=== PATIENT | female | born 1980 | race African-American/Black ===

== ENCOUNTER 2016-11-14 03:32 | Emergency (ER) | payer OTHER ==
[2016-11-14 03:42] VITALS: RESP 18
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
[2016-11-14] MEDS ORDERED: MORPHINE SULFATE 2 MG/ML SYRINGE IVP STA (04:26)
[2016-11-14] MEDS ORDERED: ASPIRIN 81 MG CHEW PO STA (04:26)
[2016-11-14 04:59] LABS: Basophils % (A) 0 %; CH 33.1; CHCM 33.3; Eosinophils # (A) 0.4 k/uL (0-0.7); Eosinophils % (A) 5 %; HCT 43.2 % (34.0-46.0); HDW 2.41; HGB 14.1 gm/dL (11.4-16.0); Luc # (Auto) 0.12; Luc % (Auto) 2; Lymphocytes # (A) 2.1 k/uL (1.0-4.8); Lymphocytes % (A) 28 %; MCH 32.5 pg (25.0-35.0); MCHC 32.7 g/dL (31.0-37.0); MCV 99.5 fL (80.0-100.0); Mean Platelet Volume 9.1; Monocytes # (A) 0.3 k/uL (0-1.0); Monocytes % (A) 4 %; Neutrophils # (A) 4.6 k/uL (1.3-7.7); Neutrophils % (A) 61 %; RBC 4.34 m/uL (3.80-5.40); RDW 14.9 % (11.5-15.5); WBC 7.4 k/uL (3.8-10.6)
[2016-11-14 05:12] LABS: ALT 22 U/L (9-52); AST 23 U/L (14-36); Alkaline Phosphatase 65 U/L (38-126); Anion Gap 11 mmol/L; Blood Urea Nitrogen 19 mg/dL (7-17); Calcium 9.9 mg/dL (8.4-10.2); Carbon Dioxide 21 mmol/L (22-30); Chloride 110 mmol/L (98-107); Glucose 86 mg/dL (74-99); Magnesium 1.7 mg/dL (1.6-2.3); Non-African American GFR(MDRD) >60 (>60 ml/min/1.73 sqM); Potassium 4.8 mmol/L (3.5-5.1); Sodium 142 mmol/L (137-145); Total Bilirubin 0.7 mg/dL (0.2-1.3); Total Protein 7.2 g/dL (6.3-8.2)
--- NOTE | 2016-11-14 05:17 | XR ---
EXAM: XR Chest, 1 View CLINICAL HISTORY: Reason: chest pain TECHNIQUE: Frontal view of the chest. COMPARISON: 03/16/2015 FINDINGS: Lungs: Unremarkable. No consolidation. Pleural space: Unremarkable. No pneumothorax. Heart: Unremarkable. No cardiomegaly. Mediastinum: Unremarkable. Bones/joints: Unremarkable. IMPRESSION: Normal chest x-ray. No significant interval changes seen.
[2016-11-14 06:27] LABS: Creatine Kinase 75 U/L (30-135)
[2016-11-14 06:33] LABS: Prothrombin Time 9.9 sec (9.0-12.0)
[2016-11-14 06:40] LABS: Creatine Kinase MB 0.4 ng/mL (0.0-2.4); Troponin I <0.012 ng/mL (0.000-0.034)
[2016-11-14] MEDS ORDERED: MORPHINE SULFATE 4 MG/ML SYRINGE IV STA (07:05)
[2016-11-14] MEDS ORDERED: KETOROLAC 30 MG/ML 1 ML VIAL IVP STA (08:29)
[2016-11-14 08:38] VITALS: BP 119/58; PULSE 54; TEMP 97.9
== END 2016-11-14 08:48 | disposition home or self-care (01) ==
LOC: EC 03:32
DX: M94.0 Chondrocostal junction syndrome [Tietze] (principal); E66.9 Obesity, unspecified; F17.200 Nicotine dependence, unspecified, uncomplicated; Z68.43 Body mass index [BMI] 50.0-59.9, adult
CPT/HCPCS: 36415; 93005; 85379; 80053; 82550; 82553; 83735; 84484; 85025; 85610; 85730; 71010; 99285; 96374; 96375; 96376; J2270 ×2; J1885

== ENCOUNTER → 2016-11-25 | Outpatient (CLI) | payer OTHER ==
--- NOTE | 2016-11-25 12:36 | P.STRESS ---
- Stress Test Note Stress Test Results/Findings: Exam Performed: stress echo exercise Exam Date: 11/25/16 Reason for Exam: CP Height: 6 ft 2 in Weight: 149.685 kg Protocol: Stress Echo Stage: 3 Duration of Exercise: 7:00 Resting Heart Rate: 58 Resting Blood Pressure: 112/49 Maximum Achieved Heart Rate: 156 Maximum Achieved Blood Pressure: 218/95 85% PMHR: 156 100% PMHR: 184 METS: 8.3 Technologist Comment: Stress Test Results/Findings: This is a 36-year-old female being evaluated for symptoms of chest pain. Patient has history of hypertension. Baseline EKG showed sinus rhythm at all. CO interval and QRS duration. Blood pressure test is 112/49, pulse rate 58. Patient walked on the Kirk protocol for 7 minutes achieving a maximal rate of 156 with blood pressure 196 4/61. EKGs taken during and after the x-ray did not reveal any changes to good-sized ischemia. Echo data. Baseline echo images show normal wall motion and thickening. X- rays echo images showed augmentation of wall motion and thickening in all segments. Final impression: #1. Negative stress test #2. Good x-rays capacity #3. Negative stress echo.
--- NOTE | 2016-11-29 10:05 | ECHOS ---
Stress Test Results/Findings: Exam Performed: stress echo exercise Exam Date: 11/25/16 Reason for Exam: CP Height: 6 ft 2 in Weight: 149.685 kg Protocol: Stress Echo Stage: 3 Duration of Exercise: 7:00 Resting Heart Rate: 58 Resting Blood Pressure: 112/49 Maximum Achieved Heart Rate: 156 Maximum Achieved Blood Pressure: 218/95 85% PMHR: 156 100% PMHR: 184 METS: 8.3 Technologist Comment: Stress Test Results/Findings: This is a 36-year-old female being evaluated for symptoms of chest pain. Patient has history of hypertension. Baseline EKG showed sinus rhythm at all. MA interval and QRS duration. Blood pressure test is 112/49, pulse rate 58. Patient walked on the Kirk protocol for 7 minutes achieving a maximal rate of 156 with blood pressure 196 4/61. EKGs taken during and after the x-ray did not reveal any changes to good-sized ischemia. Echo data. Baseline echo images show normal wall motion and thickening. X- rays echo images showed augmentation of wall motion and thickening in all segments. Final impression: #1. Negative stress test #2. Good exercise capacity #3. Negative stress echo. POLLO
== END | disposition home or self-care (01) ==
LOC: RADNMMAIN 09:13
PROVIDERS: ATTEND Family Medicine
DX: R07.9 Chest pain, unspecified (principal)
CPT/HCPCS: 93017; 93350

== ENCOUNTER 2016-11-27 05:36 | Emergency (ER) | payer OTHER ==
[2016-11-27 05:43] VITALS: BP 156/89; PULSE 91; RESP 18; TEMP 97.2
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
--- NOTE | 2016-11-27 06:56 | CT ---
EXAM: CT Head Without Intravenous Contrast CLINICAL HISTORY: Reason: Trauma TECHNIQUE: Axial computed tomography images of the head/brain without intravenous contrast. DLP is 1012.90 mGy-cm. This CT exam was performed using one or more of the following dose reduction techniques: automated exposure control, adjustment of the mA and/or kV according to patient size, and/or use of iterative reconstruction technique. COMPARISON: No relevant prior studies available. FINDINGS: Brain: Unremarkable. No hemorrhage. No significant white matter disease. No edema. Ventricles: Unremarkable. No ventriculomegaly. Bones/joints: Unremarkable. No acute fracture. Soft tissues: Unremarkable. Sinuses: Unremarkable as visualized. No acute sinusitis. Mastoid air cells: Unremarkable as visualized. No mastoid effusion. IMPRESSION: Normal head/brain CT. EXAM: CT Cervical Spine Without Intravenous Contrast CLINICAL HISTORY: Reason: Trauma TECHNIQUE: Axial computed tomography images of the cervical spine without intravenous contrast. DLP is 842.10 mGy-cm. This CT exam was performed using one or more of the following dose reduction techniques: automated exposure control, adjustment of the mA and/or kV according to patient size, and/or use of iterative reconstruction technique. COMPARISON: No relevant prior studies available. FINDINGS: Vertebrae: Unremarkable. No acute fracture. Discs/spinal canal/neural foramina: No acute findings. No spinal canal stenosis. Soft tissues: Unremarkable. Lung apices: Unremarkable as visualized. IMPRESSION: Normal cervical spine CT.
== END 2016-11-27 07:38 | disposition home or self-care (01) ==
LOC: EC 05:36
DX: S09.90XA Unspecified injury of head, initial encounter (principal); S00.511A Abrasion of lip, initial encounter; R40.2140 Coma scale, eyes open, spontaneous, unspecified time; R40.2360 Coma scale, best motor response, obeys commands, unspecified time; R40.2250 Coma scale, best verbal response, oriented, unspecified time; I10 Essential (primary) hypertension; F17.200 Nicotine dependence, unspecified, uncomplicated; Z79.899 Other long term (current) drug therapy; Y04.2XXA Assault by strike against or bumped into by another person, initial encounter
CPT/HCPCS: 70450; 72125; 99284

== ENCOUNTER 2017-04-24 19:26 | Emergency (ER) | payer OTHER ==
[2017-04-24] MEDS ORDERED: HYDROmorphone 0.5 MG/0.5 ML SYRINGE IVP STA (19:45)
[2017-04-24] MEDS ORDERED: SODIUM CHLORIDE 0.9% 500 ML IV STA (19:45)
[2017-04-24] MEDS ORDERED: KETOROLAC 30 MG/ML 1 ML VIAL IVP STA (19:45)
[2017-04-24 21:10] LABS: Basophils % (A) 0 %; Eosinophils # (A) 0.3 k/uL (0-0.7); Eosinophils % (A) 4 %; HCT 33.2 % (34.0-46.0); HGB 10.8 gm/dL (11.4-16.0); Lymphocytes # (A) 2.2 k/uL (1.0-4.8); Lymphocytes % (A) 31 %; MCH 31.7 pg (25.0-35.0); MCHC 32.4 g/dL (31.0-37.0); MCV 97.8 fL (80.0-100.0); Monocytes # (A) 0.3 k/uL (0-1.0); Monocytes % (A) 4 %; Neutrophils # (A) 4.3 k/uL (1.3-7.7); Neutrophils % (A) 60 %; Platelet Count 300 k/uL (150-450); RDW 14.2 % (11.5-15.5); WBC 7.2 k/uL (3.8-10.6)
[2017-04-24 21:22] LABS: ALT 27 U/L (9-52); AST 22 U/L (14-36); Albumin 3.8 g/dL (3.5-5.0); Alkaline Phosphatase 56 U/L (38-126); Amylase 52 U/L (30-110); Anion Gap 8 mmol/L; Blood Urea Nitrogen 20 mg/dL (7-17); Calcium 9.6 mg/dL (8.4-10.2); Carbon Dioxide 24 mmol/L (22-30); Chloride 109 mmol/L (98-107); Glucose 88 mg/dL (74-99); Lipase 203 U/L (23-300); Sodium 141 mmol/L (137-145); Total Bilirubin 0.3 mg/dL (0.2-1.3); Total Protein 6.6 g/dL (6.3-8.2)
[2017-04-24 21:46] LABS: Amorphous Sediment,Urine Rare /hpf; Appearance,Urine Cloudy (Clear); Bacteria,Urine Rare /hpf; Bilirubin,Urine Negative (Negative); Blood,Urine Small (Negative); Color,Urine Yellow; Glucose,Urine (UA) Negative (Negative); Hyaline Casts,Urine 1 /lpf (0-2); Ketones,Urine Trace (Negative); Leukocyte Esterase,Urine Negative (Negative); Mucus,Urine Few /hpf; Nitrite,Urine Negative (Negative); PH, Urine 5.5 (5.0-8.0); Protein,Urine Negative (Negative); RBC,Urine 2 /hpf (0-5); Specific Gravity,Urine 1.021 (1.001-1.035); Squamous Epithelial Cell,Urine 16 /hpf (0-4); Urobilinogen,Urine <2.0 mg/dL (<2.0); WBC,Urine 20 /hpf (0-5)
--- NOTE | 2017-04-24 22:05 | XR ---
Exam: KUB TECHNIQUE: 2 views of the abdomen were obtained. FINDINGS: No definite free intraperitoneal air is identified. Nonspecific nonobstructive bowel gas pattern is noted. There is no evidence of impaction or obstructi on. IMPRESSION: Overall nonobstructive bowel gas pattern.
[2017-04-24] MEDS ORDERED: HYDROmorphone 2 MG/ML 1 ML SYRINGE IVP STA (22:38)
--- NOTE | 2017-04-24 23:08 | CT ---
EXAMINATION TYPE: CT abdomen pelvis wo con DATE OF EXAM: 04/24/2017 COMPARISON: February 04, 2016 HISTORY: Lower back pain. CT DLP: 2583.3 mGycm Automated exposure control for dose reduction was used. TECHNIQUE: Helical acquisition of images was performed from the lung bases through the pelvis. FINDINGS: Lung bases are clear. There is no pleural effusion. Liver spleen pancreas gallbladder appear normal. Bile ducts are not dilated. There is no adrenal mass. Kidneys have normal size and contour. There is no hydronephrosis. Ureters are not dilated. There is small umbilical hernia that contains fat. There is no evidence of intestinal obstruction. I see no intestinal wall thickening. Uterus is anteverted. There is a 4 cm cyst on the left ovary. Bladder distends smoothly. I see no bony destructive process. There is no ascites. Appendix is not seen. IMPRESSION: LEFT OVARIAN CYST IS UNCHANGED COMPARED TO OLD EXAM. THERE IS CLEARING OF THE MILD LEFT-SIDED HYDRONE PHROSIS COMPARED TO OLD EXAM. NO SIGN OF ACUTE ABDOMEN AND PELVIS.
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
[2017-04-24 23:30] VITALS: BP 122/58; PULSE 76; RESP 18; TEMP 98.7
== END 2017-04-24 23:29 | disposition home or self-care (01) ==
LOC: EC 19:26
DX: N83.202 Unspecified ovarian cyst, left side (principal); M54.5 Low back pain; G89.29 Other chronic pain; I10 Essential (primary) hypertension; F17.200 Nicotine dependence, unspecified, uncomplicated; Z79.899 Other long term (current) drug therapy
CPT/HCPCS: 36415; 80053; 82150; 83690; 85025; 81001; 74018; 74176; 99284; 96374; 96375; 96376; 96361; J1170 ×2; J1885

== ENCOUNTER 2017-08-23 16:14 | Emergency (ER) | payer OTHER ==
[2017-08-23] MEDS ORDERED: SODIUM CHLORIDE 0.9% 1,000 ML IV STA (17:28)
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
[2017-08-23 18:11] LABS: Basophils % (A) 0 %; Eosinophils # (A) 0.4 k/uL (0-0.7); Eosinophils % (A) 5 %; HGB 13.1 gm/dL (11.4-16.0); Lymphocytes % (A) 28 %; MCH 32.1 pg (25.0-35.0); MCHC 32.7 g/dL (31.0-37.0); Mean Platelet Volume 7.4; Monocytes # (A) 0.2 k/uL (0-1.0); Monocytes % (A) 3 %; Neutrophils # (A) 4.3 k/uL (1.3-7.7); Neutrophils % (A) 61 %; Platelet Count 330 k/uL (150-450); RBC 4.08 m/uL (3.80-5.40); RDW 14.6 % (11.5-15.5); WBC 7.1 k/uL (3.8-10.6)
[2017-08-23 18:13] LABS: Appearance,Urine Cloudy (Clear); Bacteria,Urine Rare /hpf; Bilirubin,Urine Negative (Negative); Blood,Urine Large (Negative); Color,Urine Yellow; Glucose,Urine (UA) Negative (Negative); Ketones,Urine Trace (Negative); Leukocyte Esterase,Urine Trace (Negative); Mucus,Urine Few /hpf; Nitrite,Urine Negative (Negative); PH, Urine 6.5 (5.0-8.0); Protein,Urine 1+ (Negative); RBC,Urine 87 /hpf (0-5); Specific Gravity,Urine 1.032 (1.001-1.035); Squamous Epithelial Cell,Urine 9 /hpf (0-4); WBC,Urine 5 /hpf (0-5)
[2017-08-23 18:26] LABS: D-Dimer 0.54 mg/L FEU (<0.60); Partial Thromboplastin Time 22.3 sec (22.0-30.0); Prothrombin Time 9.5 sec (9.0-12.0)
[2017-08-23 18:27] LABS: ALT 28 U/L (9-52); AST 20 U/L (14-36); Albumin 4.3 g/dL (3.5-5.0); Alkaline Phosphatase 68 U/L (38-126); Anion Gap 14 mmol/L; Blood Urea Nitrogen 24 mg/dL (7-17); Calcium 9.6 mg/dL (8.4-10.2); Carbon Dioxide 25 mmol/L (22-30); Chloride 104 mmol/L (98-107); Glucose 110 mg/dL (74-99); Potassium 4.3 mmol/L (3.5-5.1); Sodium 143 mmol/L (137-145); Total Bilirubin 0.3 mg/dL (0.2-1.3); Total Protein 7.4 g/dL (6.3-8.2)
[2017-08-23 18:32] LABS: Creatine Kinase 97 U/L (30-135)
[2017-08-23 18:45] LABS: Creatine Kinase MB 0.5 ng/mL (0.0-2.4); Troponin I <0.012 ng/mL (0.000-0.034)
--- NOTE | 2017-08-23 19:10 | XR ---
EXAMINATION TYPE: XR chest 2V DATE OF EXAM: 08/23/2017 COMPARISON: 11/14/2016 HISTORY: Back pain TECHNIQUE: Frontal and lateral views of the chest are obtained. FINDINGS: Heart and mediastinum are normal. Lungs are clear. Diaphragm is normal. Bony thorax is int act. IMPRESSION: Normal chest. No change.
--- NOTE | 2017-08-23 19:51 | CT ---
EXAMINATION TYPE: CT brain willian wo con DATE OF EXAM: 08/23/2017 COMPARISON: 11/27/2016 HISTORY: WHITE with tingaling sensation down left arm. CT DLP: 1841.7 mGycm Automated exposure control for dose reduction was used. TECHNIQUE: CT scan of the head and cervical spine are performed without contrast. FINDINGS: Ventricles and sulci appear normal. There is no mass effect nor midline shift. There is n o sign of intracranial hemorrhage. The calvarium is intact. There is mild mucosal thickening in the e thmoid air cells. There is mild straightening of the cervical vertebra. Disc spaces are normal. Posterior elements are intact. There is no evidence of a fracture. Skull base is intact. IMPRESSION: Negative CT scan of the brain. There is new minimal ethmoid sinusitis compared to old exam. Negative CT scan of the cervical spine. No change.
[2017-08-23] MEDS ORDERED: KETOROLAC 30 MG/ML 1 ML VIAL IVP STA (20:48)
[2017-08-23 20:57] VITALS: BP 167/83; PULSE 81; RESP 17; TEMP 98.2
== END 2017-08-23 20:57 | disposition home or self-care (01) ==
LOC: EC 16:14
DX: J01.90 Acute sinusitis, unspecified (principal); R20.2 Paresthesia of skin; R11.2 Nausea with vomiting, unspecified; F17.200 Nicotine dependence, unspecified, uncomplicated; M54.2 Cervicalgia
CPT/HCPCS: 36415; 93005; 85379; 80053; 82550; 82553; 84484; 85025; 85610; 85730; 81001; 81025; 71046; 72125; 70450; 99284; 96374; 96361; J1885

== ENCOUNTER 2022-07-20 11:08 | Emergency (ER) | payer OTHER ==
[2022-07-20 11:14] VITALS: TEMP 98.2
--- NOTE | 2022-07-20 12:17 | XR ---
EXAMINATION TYPE: XR chest 2V DATE OF EXAM: 07/20/2022 COMPARISON: Chest x-ray August 23, 2017 HISTORY: Chest pain. TECHNIQUE: Frontal and lateral views of the chest are obtained. FINDINGS: There is no suspicious focal air space opacity, pleural effusion, or pneumothorax seen. T he cardiac silhouette size is stable and within normal limits. Underlying scoliotic curvature or posi tioning is seen. IMPRESSION: No acute cardiopulmonary process. No significant change from prior.
[2022-07-20] MEDS ORDERED: ASPIRIN 325 MG TAB PO STA (12:20)
[2022-07-20] MEDS ORDERED: SODIUM CHLORIDE 0.9% 1,000 ML IV ONE (12:20)
[2022-07-20 13:10] LABS: Basophils % (A) 0 %; Eosinophils # (A) 0.2 k/uL (0-0.7); Eosinophils % (A) 4 %; Lymphocytes # (A) 1.5 k/uL (1.0-4.8); Lymphocytes % (A) 27 %; MCH 31.6 pg (25.0-35.0); MCHC 32.5 g/dL (31.0-37.0); MCV 97.3 fL (80.0-100.0); Mean Platelet Volume 7.9; Monocytes # (A) 0.3 k/uL (0-1.0); Monocytes % (A) 5 %; Neutrophils # (A) 3.3 k/uL (1.3-7.7); Neutrophils % (A) 61 %; Platelet Count 283 k/uL (150-450); RBC 3.49 m/uL (3.80-5.40); RDW 15.1 % (11.5-15.5); WBC 5.4 k/uL (3.8-10.6)
[2022-07-20 13:23] LABS: ALT 16 U/L (4-34); AST 18 U/L (14-36); African American GFR (CKD) >90 (>60 ml/min/1.73 sqM); Albumin 3.7 g/dL (3.5-5.0); Alkaline Phosphatase 68 U/L (38-126); Anion Gap 4 mmol/L; Blood Urea Nitrogen 10 mg/dL (7-17); Calcium 8.8 mg/dL (8.4-10.2); Carbon Dioxide 27 mmol/L (22-30); Chloride 107 mmol/L (98-107); Glucose 94 mg/dL (74-99); Magnesium 1.9 mg/dL (1.6-2.3); Non-African American GFR(CKD) >90 (>60 ml/min/1.73 sqM); Potassium 4.2 mmol/L (3.5-5.1); Sodium 138 mmol/L (137-145); Total Bilirubin 0.3 mg/dL (0.2-1.3); Total Protein 6.8 g/dL (6.3-8.2)
[2022-07-20 13:28] LABS: INR 0.9 (<1.2); Partial Thromboplastin Time 23.5 sec (22.0-30.0); Prothrombin Time 9.4 sec (9.0-12.0)
--- NOTE | 2022-07-20 14:26 | XR ---
EXAMINATION TYPE: XR cervical spine comp DATE OF EXAM: 07/20/2022 TECHNIQUE: Frontal, lateral, oblique, swimmers, and open mouth view of the cervical spine are obtaine d. HISTORY: neck pain COMPARISON: Cervical spine CT August 23, 2017 FINDINGS: The cervical spine is visualized only from C1 thru the top of C7 level despite attempted s koki's view due to osseous overlap and large body habitus, there is grade 1 retrolisthesis C4 on C5 and C5 on C6. Suboptimal evaluation of the C7 vertebra and C7-T1 disc space. The pre-vertebral soft tissue appears within normal limits. The C1-C2 articulation is within normal limits on the open tania th view. Vertebral bodies and disc space heights are preserved. Mild multilevel anterior spurring is present. The oblique images are within normal limits. Overlying soft tissue is unremarkable. IMPRESSION: As above.
[2022-07-20] MEDS ORDERED: KETOROLAC 15 MG/ML 1 ML VIAL IM STA (14:41)
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
[2022-07-20] MEDS ORDERED: LIDOCAINE 5% PATCH TOPICAL SCH (15:00)
[2022-07-20] MEDS ORDERED: KETOROLAC 15 MG/ML 1 ML VIAL IVP STA (15:09)
[2022-07-20 15:13] VITALS: BP 156/83; PULSE 56; RESP 22
== END 2022-07-20 15:17 | disposition home or self-care (01) ==
LOC: EC 11:08
DX: M25.511 Pain in right shoulder (principal); M54.2 Cervicalgia; I10 Essential (primary) hypertension; F41.9 Anxiety disorder, unspecified; F32.A Depression, unspecified; F17.200 Nicotine dependence, unspecified, uncomplicated; F12.90 Cannabis use, unspecified, uncomplicated; Z79.899 Other long term (current) drug therapy
CPT/HCPCS: 36415; 93005; 80053; 83735; 84484; 85025; 85610; 85730; 72050; 71046; 99285; 96374; 96361; J1885